=== PATIENT | female | born 1965 | race Caucasian/White ===

== ENCOUNTER → 2016-04-19 | Outpatient (CLI) | payer BC | LOC: MAMO 04-01 09:40 → CT 04-01 10:30 → MAMO 04-01 10:30 → CT 04-01 13:00 → MAMO 04-13 15:20 | DX: Z12.31 Encounter for screening mammogram for malignant neoplasm of breast (principal); Z90.710 Acquired absence of both cervix and uterus | CPT/HCPCS: G0202 ==